=== PATIENT | female | born 1945 | race Two or more races ===

== ENCOUNTER 2019-08-29 08:36 | Inpatient (IN) | payer MEDICARE ==
[2019-08-27 15:25] LABS: Basophils # (auto) 0.1 10 ^3/uL (0-0.2); Basophils % (auto) 1.2 % (0.0-2.0); Eosinophils # (auto) 0.1 10 ^3/uL (0-0.8); Eosinophils % (auto) 0.9 % (0.0-7.0); Hemoglobin 13.3 g/dL (12.2-16.2); Lymphocytes % (auto) 29.9 % (10.0-50.0); Mean Corpuscular Hemoglobin 32.3 pg (28.0-32.0); Mean Corpuscular Hgb Conc. 33.1 g/dL (32.0-36.0); Mean Corpuscular Volume 97.7 fL (80.0-100.0); Monocytes # (auto) 0.6 10 ^3/uL (0-1.3); Monocytes % (auto) 8.7 % (0.0-12.0); Neutrophils # (auto) 3.9 10 ^3/uL (1.6-8.6); Neutrophils % (auto) 59.3 % (37.0-80.0); Platelet Count (auto) 252 10^3/uL (140-450); Red Cell Distribution Width 14.6 % (11.8-14.3); White Blood Cell 6.6 10^3/uL (4.4-10.8)
[2019-08-27 15:26] LABS: Urine Bacteria NONE SEEN /hpf (None Seen); Urine Blood 1+ /uL (Negative); Urine Mucus FEW (None Seen); Urine WBC 4 /hpf (0 - 5)
[2019-08-27 15:41] LABS: INR 1.04 (0.9-1.15); Partial Thromboplastin Time 31.3 sec (23.64-32.05)
[2019-08-27 15:45] LABS: Albumin 3.5 g/dL (3.4-5.0); BUN/Creatinine Ratio 21.9; Calcium 8.9 mg/dL (8.5-10.1); Potassium 3.5 mmol/L (3.5-5.1)
[2019-08-27 15:48] LABS: Bilirubin, Total 0.4 mg/dL (0.2-1.0); Total Protein 7.6 g/dL (6.4-8.2)
[2019-08-29] VITALS (10 sets, daily range): BP systolic 92–119; BP diastolic 50–69
[~2019-08-29] VITALS: Ht 162.6 cm; Wt 71.3 kg
[~2019-08-29 08:36] MED LIST: ALEN1TAB32 PO; ASPI-543 PO; CHOL100055 PO; CITA-77 PO; CLOP75TA41 PO; DONE10TA40 PO; FOLI800T16 PO; HYDR-392 PO; KEP500T PO; MEMA1TAB5 PO; METO25TA5 PO; NORT25CA PO; PRAV20TA3 PO
[2019-08-29] MEDS ORDERED: MEPERIDINE HCL (25 MG/ML) 1ML VIAL ONE (11:40)
[2019-08-29] MEDS ORDERED: MIDAZOLAM HCL 1MG/1ML-2 ML VIAL ONE ×2 (11:40→12:52)
[2019-08-29] MEDS ORDERED: fentaNYL CITRATE 100 MCG/2 ML VL ONE (11:40)
[2019-08-29] MEDS ORDERED: DexAMETHasone SOD PHOS 10MG/1ML VIAL INJ ONE (11:42)
[2019-08-29] MEDS ORDERED: LIDOCAINE 1% HCL (LOCAL ANESTH.) INJ 20ML MDV ONE (11:57)
[2019-08-29] MEDS ORDERED: TETRACAINE 1% INJ 2 ML VIAL IJ ONE (11:57)
[2019-08-29] MEDS ORDERED: CLINDAMYCIN 600MG IV 50 ML IV ONE (12:25)
[2019-08-29] MEDS ORDERED: PROPOFOL 10 MG/ML 20 ML IV ONE (12:29)
[2019-08-29] MEDS ORDERED: MORPHINE SULF(PF) 0.5MG/ML 10ML VIAL ONE (12:29)
[2019-08-29] MEDS ORDERED: HYDROmorphone HCL 2 MG/ML VL IV PRN ×2 (13:15)
[2019-08-29] MEDS ORDERED: DexAMETHasone SOD PHOS 10MG/1ML VIAL INJ IV PRN (13:15)
[2019-08-29] MEDS ORDERED: ePHEDrine SULFATE 50 MG/ML AMP IV PRN (13:15)
[2019-08-29] MEDS ORDERED: LABETALOL HCL 5 MG/ML 4ML SYRINGE IV PRN (13:15)
[2019-08-29] MEDS ORDERED: NALBUPHINE HCL 10 MG/1ml INJECTION SUBCUT ONE (13:15)
[2019-08-29] MEDS ORDERED: diphenhdrAMINE HCL 50 MG/1 ML VL IV PRN (13:15)
[2019-08-29] MEDS ORDERED: MORPHINE SULFATE 4 MG/ML SYR/VIAL IV PRN (13:15)
[2019-08-29] MEDS ORDERED: MIDAZOLAM HCL 1MG/1ML-2 ML VIAL IV PRN (13:15)
[2019-08-29] MEDS ORDERED: NALOXONE HCL 0.4 MG/ML VIAL IV PRN (13:15)
[2019-08-29] MEDS ORDERED: ONDANSETRON HCL 4 MG/2 ML VIAL IV PRN ×3 (13:15→15:30)
[2019-08-29] MEDS ORDERED: NITROGLYCERIN 0.4 MG SL TAB SL PRN ×3 (14:15→15:30)
[2019-08-29] MEDS ORDERED: MORPHINE SULF INJ 2 MG/ML SYRINGE 1ML IV PRN ×3 (14:15→15:30)
[2019-08-29] MEDS ORDERED: SODIUM CHLORIDE 0.9% 1,000 ML IV SCH (15:24)
[2019-08-29] MEDS ORDERED: ALUM & MAG HYDROX-SIMETH LIQ(MAALOX) 30 ML PO PRN (15:30)
[2019-08-29] MEDS ORDERED: DOCUSATE SOD 100 MG CAP PO PRN (15:30)
[2019-08-29] MEDS ORDERED: LORazepam 0.5 MG TAB PO PRN (15:30)
[2019-08-29] MEDS: HYDROcodone-ACET 5/325MG TAB PO PRN ×2 (18:11→22:36)
[2019-08-29] MEDS: CLINDAMYCIN 300MG IV 50 ML IV SCH (22:24)
[2019-08-29] MEDS: SODIUM CHLORIDE 0.9% 1,000 ML IV SCH (22:24)
[2019-08-30] VITALS (19 sets, daily range): BP systolic 90–122; BP diastolic 51–78
[2019-08-30] MEDS: CLINDAMYCIN 300MG IV 50 ML IV SCH ×3 (05:46→22:25)
[2019-08-30] MEDS: HYDROcodone-ACET 5/325MG TAB PO PRN ×2 (05:47→09:49)
[2019-08-30 05:53] LABS: Basophils # (auto) 0.1 10 ^3/uL (0-0.2); Eosinophils # (auto) 0 10 ^3/uL (0-0.8); Hematocrit 34.4 % (36.0-46.0); Hemoglobin 11.6 g/dL (12.2-16.2); Mean Corpuscular Hemoglobin 32.7 pg (28.0-32.0); Mean Corpuscular Hgb Conc. 33.5 g/dL (32.0-36.0); Mean Corpuscular Volume 97.6 fL (80.0-100.0); Monocytes # (auto) 0.7 10 ^3/uL (0-1.3); Monocytes % (auto) 6.5 % (0.0-12.0); Neutrophils % (auto) 83.5 % (37.0-80.0); Platelet Count (auto) 207 10^3/uL (140-450); Red Blood Cells 3.53 10^6/uL (4.0-5.20); White Blood Cell 10.7 10^3/uL (4.4-10.8)
[2019-08-30 06:09] LABS: Albumin 2.9 g/dL (3.4-5.0); Calcium 8.2 mg/dL (8.5-10.1); Potassium 4.1 mmol/L (3.5-5.1)
[2019-08-30 06:12] LABS: BUN/Creatinine Ratio 29.3; Bilirubin, Total 0.4 mg/dL (0.2-1.0); Phosphorus 3.1 mg/dL (2.5-4.90); Total Protein 6.2 g/dL (6.4-8.2)
[2019-08-30] MEDS: SODIUM CHLORIDE 0.9% 1,000 ML IV SCH ×2 (08:02→14:48)
[2019-08-30] MEDS: ENOXAPARIN SOD 40 MG/0.4 ML SYRINGE SC SCH (09:49)
[2019-08-30] MEDS ORDERED: oxyCODONE ER 10 MG TAB PO PRN (14:15)
[2019-08-30] MEDS: oxyCODONE HCL 5MG TAB PO PRN ×2 (14:49→20:50)
[2019-08-31] MEDS: SODIUM CHLORIDE 0.9% 1,000 ML IV SCH (02:20)
[2019-08-31] MEDS: MORPHINE SULF INJ 2 MG/ML SYRINGE 1ML IV PRN ×2 (02:21→08:50)
[2019-08-31] MEDS: CLINDAMYCIN 300MG IV 50 ML IV SCH ×2 (05:47→13:58)
[2019-08-31 06:00] VITALS: BP 135/77
[2019-08-31 07:26] LABS: Hematocrit 37.8 % (36.0-46.0); Hemoglobin 12.2 g/dL (12.2-16.2); Mean Corpuscular Hemoglobin 32.7 pg (28.0-32.0); Mean Corpuscular Hgb Conc. 32.3 g/dL (32.0-36.0); Mean Corpuscular Volume 101.3 fL (80.0-100.0); Platelet Count (auto) 179 10^3/uL (140-450); Red Blood Cells 3.73 10^6/uL (4.0-5.20); White Blood Cell 8.6 10^3/uL (4.4-10.8)
[2019-08-31 07:44] LABS: Basophils % (manual) 0 (0.0-2.0); Blast Cells 0; Eosinophils % (manual) 0 (0-7); Metamyelocytes % 0; Myelocytes % 0; Promyelocytes % 0; Reactive Lymphocytes 0
[2019-08-31 07:46] LABS: BUN/Creatinine Ratio 20.4; Calcium 8.3 mg/dL (8.5-10.1); Potassium 3.8 mmol/L (3.5-5.1)
[2019-08-31 08:15] LABS: Band Neutrophils % (manual) 1; Lymphocytes % (manual) 31 (10.0-50.0); Monocytes % (manual) 2 (0-12)
[2019-08-31] MEDS: ENOXAPARIN SOD 40 MG/0.4 ML SYRINGE SC SCH (08:49)
[2019-08-31 09:00] VITALS: BP 136/73
[2019-08-31] MEDS: oxyCODONE HCL 5MG TAB PO PRN (13:36)
[2019-08-31 14:00] VITALS: BP 147/76
[2019-08-31 17:00] VITALS: BP 150/80
[2019-08-31 20:00] VITALS: BP 122/57
[2019-08-31 22:00] VITALS: BP 122/57
[2019-09-01] MEDS: oxyCODONE HCL 5MG TAB PO PRN ×3 (00:17→15:25)
[2019-09-01 05:00] VITALS: BP 126/72
[2019-09-01 06:29] LABS: Basophils # (auto) 0.1 10 ^3/uL (0-0.2); Basophils % (auto) 1.1 % (0.0-2.0); Eosinophils # (auto) 0 10 ^3/uL (0-0.8); Eosinophils % (auto) 0.4 % (0.0-7.0); Hematocrit 36.5 % (36.0-46.0); Hemoglobin 12.3 g/dL (12.2-16.2); Lymphocytes # (auto) 1.6 10 ^3/uL (0.4-5.4); Lymphocytes % (auto) 19.4 % (10.0-50.0); Mean Corpuscular Hemoglobin 32.4 pg (28.0-32.0); Mean Corpuscular Hgb Conc. 33.8 g/dL (32.0-36.0); Mean Corpuscular Volume 95.9 fL (80.0-100.0); Monocytes # (auto) 0.7 10 ^3/uL (0-1.3); Monocytes % (auto) 9.1 % (0.0-12.0); Neutrophils # (auto) 5.6 10 ^3/uL (1.6-8.6); Nucleated Red Blood Cells % 0.1 %; Platelet Count (auto) 197 10^3/uL (140-450); Red Cell Distribution Width 14.2 % (11.8-14.3); White Blood Cell 8.1 10^3/uL (4.4-10.8)
[2019-09-01 09:00] VITALS: BP 124/71
[2019-09-01] MEDS: ENOXAPARIN SOD 40 MG/0.4 ML SYRINGE SC SCH (09:13)
[2019-09-01] MEDS ORDERED: POTASSIUM CHLORIDE 8 MEQ TAB PO SCH (10:00)
[2019-09-01] MEDS ORDERED: FUROSEMIDE 20 MG/2 ML VIAL IV SCH (10:00)
[2019-09-01] MEDS ORDERED: POTASSIUM CHLORIDE 8 MEQ TAB PO ONE (11:00)
[2019-09-01 13:00] VITALS: BP 138/75
[2019-09-01] MEDS: KETOROLAC TROMETH 30 MG/ML 1ML VIAL IV PRN ×2 (13:32→20:27)
[2019-09-01 17:00] VITALS: BP 128/67
[2019-09-01 22:00] VITALS: BP 138/78
[2019-09-01] MEDS: LACTULOSE 20Gm/30ML SOLN PO SCH (22:00)
[2019-09-02 05:00] VITALS: BP 137/78
[2019-09-02 09:19] VITALS: BP 135/70
[2019-09-02] MEDS: LACTULOSE 20Gm/30ML SOLN PO SCH (09:20)
[2019-09-02] MEDS: ENOXAPARIN SOD 40 MG/0.4 ML SYRINGE SC SCH (09:20)
[2019-09-02] MEDS: KETOROLAC TROMETH 30 MG/ML 1ML VIAL IV PRN (09:23)
[2019-09-02 13:00] VITALS: BP 121/76
[2019-09-02] MEDS: oxyCODONE HCL 5MG TAB PO PRN (15:17)
[2019-09-02 16:51] VITALS: BP 137/72
== END 2019-09-02 18:18 | disposition home health service (06) | DRG 493 ==
LOC: SUR 08:36 → TELE-CENTR 15:51
PROVIDERS: ADMIT Orthopaedic Surgery; ATTEND Internal Medicine
PROC: 0MQR0ZZ Repair Left Ankle Bursa and Ligament, Open Approach (ICD-10-PCS; 2019-08-29)
PROC: 0QSK04Z Reposition Left Fibula with Internal Fixation Device, Open Approach (ICD-10-PCS; principal; 2019-08-29 12:29)
DX: S82.62XA Displaced fracture of lateral malleolus of left fibula, initial encounter for closed fracture (principal); J98.11 Atelectasis; I97.191 Other postprocedural cardiac functional disturbances following other surgery; E87.6 Hypokalemia; E78.5 Hyperlipidemia, unspecified; I10 Essential (primary) hypertension; I27.20 Pulmonary hypertension, unspecified; S93.492A Sprain of other ligament of left ankle, initial encounter; I08.1 Rheumatic disorders of both mitral and tricuspid valves; R00.1 Bradycardia, unspecified; F03.90 Unspecified dementia, unspecified severity, without behavioral disturbance, psychotic disturbance, mood disturbance, and anxiety; X58.XXXA Exposure to other specified factors, initial encounter; Y93.89 Activity, other specified; Y92.89 Other specified places as the place of occurrence of the external cause; Y99.8 Other external cause status; I95.81 Postprocedural hypotension; Z11.59 Encounter for screening for other viral diseases
CPT/HCPCS: 36415; 71045; 73600; 76000; 80048; 80053; 81001; 83735; 84100; 84132; 84484; 85007; 85025; 85027; 85610; 85730; 87635; 93005; 93306; 93971; 97116; 97163; 97530; C1713; G0378; J1100; J1885; J2001; J2250; J2704; J3490

== ENCOUNTER 2023-05-14 15:37 | Inpatient (IN) | payer MEDICARE ==
[~2023-05-14] VITALS: Ht 154.9 cm; Wt 63.9 kg
[~2023-05-14 15:37] MED LIST changes: -ALEN1TAB32 PO; +ALEN70TA74 PO; -CLOP75TA41 PO; +CLOP75TA70 PO; -DONE10TA40 PO; +DONE1TAB88 PO
[2023-05-14] MEDS ORDERED: HYDROcodone-ACET 5/325MG TAB PO ONE (18:30)
[2023-05-14 20:26] VITALS: PULSE 70; RESP 20; O2SAT 94
[2023-05-15] MEDS ORDERED: HYDROcodone-ACET 5/325MG TAB PO ONE (07:15)
[2023-05-15 07:40] VITALS: RESP 20; O2SAT 97
[2023-05-15 11:14] LABS: Basophils # (auto) 0 10 ^3/uL (0-0.2); Basophils % (auto) 0.3 % (0.0-2.0); Eosinophils # (auto) 0 10 ^3/uL (0-0.8); Eosinophils % (auto) 0.1 % (0.0-7.0); Hematocrit 28.3 % (36.0-46.0); Hemoglobin 9.4 g/dL (12.2-16.2); Lymphocytes # (auto) 1.1 10 ^3/uL (0.4-5.4); Lymphocytes % (auto) 9.5 % (10.0-50.0); Mean Corpuscular Hemoglobin 31.6 pg (28.0-32.0); Mean Corpuscular Hgb Conc. 33.2 g/dL (32.0-36.0); Mean Corpuscular Volume 95.1 fL (80.0-100.0); Monocytes # (auto) 0.9 10 ^3/uL (0-1.3); Monocytes % (auto) 7.6 % (0.0-12.0); Neutrophils # (auto) 9.4 10 ^3/uL (1.6-8.6); Neutrophils % (auto) 82.5 % (37.0-80.0); Red Blood Cells 2.98 10^6/uL (4.0-5.20); Red Cell Distribution Width 15.3 % (11.8-14.3); White Blood Cell 11.4 10^3/uL (4.4-10.8)
[2023-05-15 11:23] LABS: Chloride 107 mmol/L (98-107); Potassium 3.8 mmol/L (3.5-5.1); Sodium 139 mmol/L (136-145)
[2023-05-15 11:24] LABS: Anion Gap 6 (5-15); Carbon Dioxide 26 mmol/L (20-30)
[2023-05-15 11:25] LABS: Calcium 9.3 mg/dL (8.5-10.1)
[2023-05-15 11:29] LABS: BUN/Creatinine Ratio 18.6 (10.0-20.0); Blood Urea Nitrogen 11 mg/dL (9-23); Glucose 129 mg/dL (74-106)
[2023-05-15] MEDS ORDERED: ONDANSETRON HCL 4 MG/2 ML VIAL IV PRN (11:30)
[2023-05-15] MEDS ORDERED: ACETAMINOPHEN 325 MG TAB PO PRN (11:30)
[2023-05-15] MEDS ORDERED: MORPHINE SULFATE INJ 2 MG/ml SYRG IV PRN (11:30)
[2023-05-15] MEDS ORDERED: DOCUSATE SOD 100 MG CAP PO PRN (11:30)
[2023-05-15] MEDS ORDERED: GABA-1250 PO (11:34)
[2023-05-15] MEDS ORDERED: ARIP1TAB5 PO (11:34)
[2023-05-15] MEDS ORDERED: NORT10CA PO (11:34)
[2023-05-15] MEDS ORDERED: DONE10TA91 PO (11:34)
[2023-05-15] MEDS ORDERED: LEVE500T3 PO (11:34)
[2023-05-15] MEDS ORDERED: PRAV20TA3 PO (11:34)
[2023-05-15 11:52] LABS: Urine Bacteria NONE SEEN /hpf (None Seen); Urine Blood Negative /uL (Negative); Urine Clarity HAZY (Clear); Urine Color Yellow (Yellow); Urine Mucus FEW (None Seen); Urine Protein, UAD 1+ (Negative); Urine Specific Gravity 1.036 (1.001-1.035); Urine WBC 19 /hpf (0 - 5)
[2023-05-15] MEDS ORDERED: CIPROFLOXACIN 400MG/200ML 200 ML IV ONE (12:00)
[2023-05-15 12:42] LABS: % Iron Saturation 7.6 % (15-50)
[2023-05-15] MEDS: ENOXAPARIN SOD 40 MG/0.4 ML SYRINGE SC SCH (14:28)
[2023-05-15 17:00] VITALS: BP 124/54; PULSE 104; RESP 16; TEMP 99.1; O2SAT 95
[2023-05-15 20:00] VITALS: O2SAT 98
[2023-05-15] MEDS: CIPROFLOXACIN 400MG/200ML 200 ML IV SCH (21:48)
[2023-05-15] MEDS: PRAVASTATIN SODIUM 20 MG TAB PO SCH (21:49)
[2023-05-15] MEDS: levETIRAcetam 500 MG TAB PO SCH (21:50)
[2023-05-15] MEDS: NORTRIPTYLINE HCL 10 MG CAP PO SCH (21:50)
[2023-05-15] MEDS: HYDROcodone-ACET 5/325MG TAB PO PRN (21:50)
[2023-05-15 22:00] VITALS: BP 112/60; PULSE 96; RESP 17; TEMP 97.6; O2SAT 98
[2023-05-16 05:00] VITALS: BP 110/52; PULSE 91; RESP 17; TEMP 98.1; O2SAT 97
[2023-05-16 06:55] LABS: Folate (Folic Acid) > 24.00 ng/mL (>5.38)
[2023-05-16 07:00] LABS: Alanine Aminotransferase 32 U/L (7-40); Albumin 3.7 g/dL (3.2-4.8); Alkaline Phosphatase 60 U/L (46-116); Anion Gap 7 (5-15); Aspartate Aminotransferase 71 U/L (13-40); BUN/Creatinine Ratio 14.5 (10.0-20.0); Bilirubin, Total 1.1 mg/dL (0.2-1.0); Blood Urea Nitrogen 8 mg/dL (9-23); Calcium 9.1 mg/dL (8.5-10.1); Carbon Dioxide 25 mmol/L (20-30); Chloride 107 mmol/L (98-107); Glucose 94 mg/dL (74-106); Potassium 4.2 mmol/L (3.5-5.1); Sodium 139 mmol/L (136-145); Total Protein 6.3 g/dL (5.7-8.2)
[2023-05-16 07:23] LABS: Basophils # (auto) 0.1 10 ^3/uL (0-0.2); Basophils % (auto) 0.8 % (0.0-2.0); Eosinophils # (auto) 0 10 ^3/uL (0-0.8); Eosinophils % (auto) 0.4 % (0.0-7.0); Hematocrit 28.5 % (36.0-46.0); Hemoglobin 9.5 g/dL (12.2-16.2); Lymphocytes # (auto) 2.6 10 ^3/uL (0.4-5.4); Lymphocytes % (auto) 26.2 % (10.0-50.0); Mean Corpuscular Hemoglobin 31.2 pg (28.0-32.0); Mean Corpuscular Hgb Conc. 33.5 g/dL (32.0-36.0); Monocytes # (auto) 1.4 10 ^3/uL (0-1.3); Monocytes % (auto) 13.8 % (0.0-12.0); Neutrophils # (auto) 5.9 10 ^3/uL (1.6-8.6); Neutrophils % (auto) 58.8 % (37.0-80.0); Nucleated Red Blood Cells % 0.1 %; Red Blood Cells 3.06 10^6/uL (4.0-5.20); Red Cell Distribution Width 15.1 % (11.8-14.3)
[2023-05-16 08:30] VITALS: BP 110/70; PULSE 89; RESP 17; TEMP 98; O2SAT 92
[2023-05-16] MEDS: GABAPENTIN 300 MG CAP PO SCH (10:14)
[2023-05-16] MEDS: ENOXAPARIN SOD 40 MG/0.4 ML SYRINGE SC SCH (10:14)
[2023-05-16] MEDS: levETIRAcetam 500 MG TAB PO SCH ×2 (10:15→22:21)
[2023-05-16] MEDS: HYDROcodone-ACET 5/325MG TAB PO PRN ×3 (10:15→22:22)
[2023-05-16] MEDS: DONEPEZIL HYDROCHLORIDE 5 MG TAB PO SCH (10:15)
[2023-05-16] MEDS: CIPROFLOXACIN 400MG/200ML 200 ML IV SCH (10:23)
[2023-05-16] MEDS: NORTRIPTYLINE HCL 10 MG CAP PO SCH ×2 (10:55→22:21)
[2023-05-16 12:30] VITALS: BP 106/66; PULSE 98; RESP 18; TEMP 98; O2SAT 96
[2023-05-16 17:10] VITALS: BP 125/76; PULSE 94; RESP 20; TEMP 98.1; O2SAT 98
[2023-05-16 20:00] VITALS: O2SAT 96
[2023-05-16 22:00] VITALS: BP 99/49; PULSE 88; RESP 16; TEMP 98.5; O2SAT 96
[2023-05-16] MEDS: PRAVASTATIN SODIUM 20 MG TAB PO SCH (22:21)
[2023-05-17] VITALS (7 sets, daily range): BP systolic 99–191; BP diastolic 48–69; PULSE 65–88; RESP 15–19; TEMP 98.2–99; O2SAT 93–100
[2023-05-17] MEDS: HYDROcodone-ACET 5/325MG TAB PO PRN ×3 (07:56→22:14)
[2023-05-17] MEDS: ENOXAPARIN SOD 40 MG/0.4 ML SYRINGE SC SCH (10:20)
[2023-05-17] MEDS: GABAPENTIN 300 MG CAP PO SCH (10:21)
[2023-05-17] MEDS: levETIRAcetam 500 MG TAB PO SCH ×2 (10:21→22:14)
[2023-05-17] MEDS: DONEPEZIL HYDROCHLORIDE 5 MG TAB PO SCH (10:21)
[2023-05-17] MEDS: NORTRIPTYLINE HCL 10 MG CAP PO SCH ×2 (10:31→22:14)
[2023-05-17 18:45] LABS: COVID19 ANTIGEN SOFIA FIA NEGATIVE (NEGATIVE)
[2023-05-17] MEDS ORDERED: cefTRIAXone 1GM/50ML D5W 50 ML IV SCH (21:00)
[2023-05-17] MEDS: PRAVASTATIN SODIUM 20 MG TAB PO SCH (22:14)
[2023-05-18 05:00] VITALS: BP 97/59; PULSE 77; RESP 16; TEMP 98.4; O2SAT 99
[2023-05-18 08:00] VITALS: BP 101/64; PULSE 76; RESP 16; TEMP 98.1; O2SAT 93
[2023-05-18] MEDS: HYDROcodone-ACET 5/325MG TAB PO PRN ×2 (08:10→15:58)
[2023-05-18 08:41] LABS: Hepatitis B Surface Antigen Negative (Negative)
[2023-05-18 09:00] VITALS: BP 101/64; PULSE 76; RESP 16; TEMP 98.1; O2SAT 95
[2023-05-18 09:03] LABS: Hepatitis C Antibody Negative (Negative)
[2023-05-18] MEDS: ENOXAPARIN SOD 40 MG/0.4 ML SYRINGE SC SCH (10:39)
[2023-05-18] MEDS: DONEPEZIL HYDROCHLORIDE 5 MG TAB PO SCH (10:39)
[2023-05-18] MEDS: GABAPENTIN 300 MG CAP PO SCH (10:40)
[2023-05-18] MEDS: levETIRAcetam 500 MG TAB PO SCH (10:40)
[2023-05-18] MEDS: NORTRIPTYLINE HCL 10 MG CAP PO SCH (10:48)
[2023-05-18 13:00] VITALS: BP 102/53; PULSE 83; RESP 16; TEMP 98.1; O2SAT 93
[2023-05-18 15:32] VITALS: BP 102/53; PULSE 83; RESP 16; TEMP 98.1; O2SAT 93
== END 2023-05-18 16:40 | DRG 920 ==
LOC: ER 15:37 → EDBD 15:37 → OVERFLOW 05-15 11:24 → EAST 05-15 17:00
PROVIDERS: ADMIT Nurse Practitioner Family; ATTEND Family Medicine
DX: M96.840 Postprocedural hematoma of a musculoskeletal structure following a musculoskeletal system procedure (principal); N30.00 Acute cystitis without hematuria; G89.18 Other acute postprocedural pain; S70.02XA Contusion of left hip, initial encounter; D64.9 Anemia, unspecified; Z20.822 Contact with and (suspected) exposure to COVID-19; I10 Essential (primary) hypertension; F03.90 Unspecified dementia, unspecified severity, without behavioral disturbance, psychotic disturbance, mood disturbance, and anxiety; I27.20 Pulmonary hypertension, unspecified; E78.00 Pure hypercholesterolemia, unspecified; R56.9 Unspecified convulsions; X58.XXXA Exposure to other specified factors, initial encounter; M54.16 Radiculopathy, lumbar region; G62.9 Polyneuropathy, unspecified; Z88.0 Allergy status to penicillin; Z86.73 Personal history of transient ischemic attack (TIA), and cerebral infarction without residual deficits; Z82.0 Family history of epilepsy and other diseases of the nervous system; Y93.89 Activity, other specified; Y92.89 Other specified places as the place of occurrence of the external cause; Y99.8 Other external cause status
CPT/HCPCS: 36415; 73502; 73700; 80048; 80053; 81001; 82607; 82746; 83540; 83550; 84443; 85025; 86803; 87081; 87086; 87340; 87426; 93971; 97110; 97116; 97163; G0378

== ENCOUNTER 2023-06-26 09:53 | Emergency (ER) | payer MEDICARE ==
[~2023-06-26] VITALS: Ht 165.1 cm; Wt 59.0 kg
[~2023-06-26 09:53] MED LIST changes: -ALEN70TA74 PO; +ARIP10TA8 PO; -ASPI-543 PO; -CHOL100055 PO; -CLOP75TA70 PO; +DONE10TA91 PO; -DONE1TAB88 PO; -FOLI800T16 PO; +GABA-1250 PO; -HYDR-392 PO; -MEMA1TAB5 PO; -METO25TA5 PO; +NORT10CA PO; -NORT25CA PO
[2023-06-26] MEDS: HYDROcodone-ACET 5/325MG TAB PO ONE (11:20)
[2023-06-26 11:33] LABS: Amphetamine Screen, Urine Neg (NEGATIVE); Barbiturate Scree,Urine Neg (NEGATIVE); Benzodiazephine Screen, Urine Neg (NEGATIVE); Cannabinoid Screen, Urine Neg (NEGATIVE); Cocaine Screen, Urine Neg (NEGATIVE); Opiate Scree,Urine Neg (NEGATIVE); Phencyclidine Screen, Urine Neg (NEGATIVE)
[2023-06-26 13:36] LABS: Alanine Aminotransferase 16 U/L (7-40); Albumin 4.1 g/dL (3.2-4.8); Alkaline Phosphatase 72 U/L (46-116); Anion Gap 8 (5-15); Aspartate Aminotransferase 30 U/L (13-40); Bilirubin, Total 0.8 mg/dL (0.2-1.0); Blood Urea Nitrogen 8 mg/dL (9-23); Carbon Dioxide 23 mmol/L (20-30); Chloride 107 mmol/L (98-107); Glucose 95 mg/dL (74-106); Potassium 3.8 mmol/L (3.5-5.1); Sodium 138 mmol/L (136-145); Total Protein 6.8 g/dL (5.7-8.2)
[2023-06-26 13:43] LABS: Salicylate < 3.0 mg/dL (2.8-20.0)
[2023-06-26 13:52] LABS: Urine Bacteria NONE SEEN /hpf (None Seen); Urine Blood 2+ /uL (Negative); Urine Clarity Clear (Clear); Urine Color Colorless (Yellow); Urine Protein, UAD TRACE (Negative); Urine Specific Gravity 1.012 (1.001-1.035); Urine Urobilinogen Normal (Negative); Urine WBC <1 /hpf (0 - 5)
[2023-06-26 14:10] LABS: Basophils # (auto) 0 10 ^3/uL (0-0.2); Basophils % (auto) 0.2 % (0.0-2.0); Eosinophils # (auto) 0 10 ^3/uL (0-0.8); Eosinophils % (auto) 0.1 % (0.0-7.0); Hematocrit 33.4 % (36.0-46.0); Hemoglobin 10.7 g/dL (12.2-16.2); Lymphocytes # (auto) 1.5 10 ^3/uL (0.4-5.4); Lymphocytes % (auto) 14.3 % (10.0-50.0); Mean Corpuscular Hemoglobin 29.3 pg (28.0-32.0); Mean Corpuscular Hgb Conc. 32.1 g/dL (32.0-36.0); Mean Corpuscular Volume 91.4 fL (80.0-100.0); Monocytes # (auto) 0.7 10 ^3/uL (0-1.3); Monocytes % (auto) 6.7 % (0.0-12.0); Neutrophils # (auto) 8.2 10 ^3/uL (1.6-8.6); Neutrophils % (auto) 78.7 % (37.0-80.0); Red Blood Cells 3.66 10^6/uL (4.0-5.20); Red Cell Distribution Width 14.6 % (11.8-14.3); White Blood Cell 10.5 10^3/uL (4.4-10.8)
[2023-06-26] MEDS: DULoxetine HCL 30 MG CAP PO ONE (17:37)
[2023-06-26 18:32] VITALS: PULSE 90; RESP 18; O2SAT 99
[2023-06-26 21:16] VITALS: PULSE 78
[2023-06-26] MEDS: DONEPEZIL HYDROCHLORIDE 5 MG TAB PO ONE (21:52)
[2023-06-26] MEDS: PREGABALIN 25 MG CAP PO ONE (21:52)
[2023-06-26] MEDS: GABAPENTIN 300 MG CAP PO ONE (21:52)
[2023-06-26] MEDS: CITALOPRAM HYDROBR 20 MG TAB PO ONE (21:52)
[2023-06-26] MEDS: levETIRAcetam 500 MG TAB PO ONE (21:53)
[2023-06-26] MEDS: NORTRIPTYLINE HCL 10 MG CAP PO ONE (22:06)
[2023-06-27 07:30] VITALS: PULSE 85; RESP 16; O2SAT 98
[2023-06-27] MEDS: HYDROcodone-ACET 5/325MG TAB PO ONE ×2 (08:38→15:13)
[2023-06-27] MEDS: DULoxetine HCL 30 MG CAP PO SCH (10:41)
[2023-06-27] MEDS: GABAPENTIN 300 MG CAP PO ONE (15:13)
[2023-06-27 19:01] VITALS: BP 137/65; PULSE 85; RESP 16; TEMP 97.7; O2SAT 97
== END 2023-06-27 19:34 | disposition short-term general hospital (02) ==
LOC: EDBD 09:53 → ER 09:53
DX: R45.851 Suicidal ideations (principal); F32.9 Major depressive disorder, single episode, unspecified; E78.5 Hyperlipidemia, unspecified; I10 Essential (primary) hypertension; Z90.49 Acquired absence of other specified parts of digestive tract; Z98.51 Tubal ligation status; Z86.73 Personal history of transient ischemic attack (TIA), and cerebral infarction without residual deficits; Z79.899 Other long term (current) drug therapy
CPT/HCPCS: 36415; 80053; 80307; 80329; 81001; 85025; 93005